=== PATIENT | female | born 1980 | race Caucasian/White ===

== ENCOUNTER 2017-02-16 23:01 | Emergency (ER) | payer OTHER ==
[~2017-02-16] VITALS: Ht 165.1 cm; Wt 66.8 kg
[~2017-02-16 23:01] MED LIST: FLUO40CA8 PO; HYDR-3983 PO; INSPMPNVLG; LORA-741 PO
[2017-02-16 23:19] VITALS: TEMP 37; Ht 165.1 cm; Wt 66.8 kg
[2017-02-16] MEDS ORDERED: SODIUM CHLORIDE 0.9% 1000ML 1,000 ML IV STA (23:28)
[2017-02-17 00:02] LABS: URINE APPEARANCE CLEAR (CLEAR); URINE BILIRUBIN NEG (NEG); URINE COLOR YELLOW; URINE NITRITE NEG (NEG); URINE PH 6.5 (4.5-7.5); URINE SPECIFIC GRAVITY 1.024 (1.000-1.030); UROBILINOGEN NEG (NEG); ZZUR CULT IF INDIC CLEAN CATCH NO
[2017-02-17 00:03] LABS: BASO % 0.9 %; BASO ABS # 0.06 K/uL (0-0.2); COMPLETE YES; EOS % 1.3 %; HEMATOCRIT 40.2 % (37-47); LYMPH % 28.1 %; MEAN CELL VOLUME 85.4 fL (80-100); MEAN CORPUSCULAR HEMOGLOBIN 28.7 pg (25-34); MEAN CORPUSCULAR HGB CONC 33.6 g/dl (32-36); MEAN PLATELET VOLUME 9.5 fL (7.4-10.4); MONO % 8.1 %; NEUT % 61.6 %; PLATELET COUNT 323 K/uL (130-400); RED BLOOD COUNT 4.71 M/uL (4.2-5.4); WHITE BLOOD COUNT 6.75 K/uL (4.8-10.8)
[2017-02-17 00:06] LABS: MANUAL MICROSCOPIC REQUIRED? NO; REVIEW REQ? NO
[2017-02-17 00:24] LABS: PREG INTERNAL NEGATIVE QC NEG CLEAR BACKGROUND; PREG INTERNAL POSITIVE QC POS CONTROL LINE
[2017-02-17 00:34] LABS: BLOOD UREA NITROGEN 20 mg/dl (7-18); BUN/CREATININE RATIO 16.3 (10-20); CALCIUM 9.4 mg/dl (8.5-10.1); CARBON DIOXIDE 29 mmol/L (21-32); CHLORIDE 99 mmol/L (98-107); GLUCOSE 509 mg/dl (70-99); POTASSIUM 3.9 mmol/L (3.5-5.1); SODIUM 135 mmol/L (136-145)
[2017-02-17 00:50] LABS: BETA-HYDROXYBUTYRATE 1.85 mg/dL (0.2-2.81)
[2017-02-17] MEDS ORDERED: NovoLIN-R INSULIN PER UNIT CHARGE IV STA (00:51)
[2017-02-17 02:23] VITALS: BP 116/68; PULSE 88; O2SAT 98
--- NOTE | 2017-02-17 06:11 | EMERGENCY ROOM VISIT NOTE ---
History First contact with patient: 23:06 Chief Complaint: HYPERGLYCEMIA Stated Complaint: BLOOD SUGAR OVER 600 Nursing Triage Summary: [facility] [place] since 1700 History of Present Illness The patient is a 36 year old female who presents to the Emergency Room with complaints of hyperglycemia today. Blood sugars were greater than 600 per patient. Patient states 6 years ago her insulin pump malfunctioned and had a similar episode. Patient is a type I diabetic. Normally her blood sugars are well-controlled. She has an appointment on Sunday with endocrinology. Patient changed out her tubing and insulin with no real improvement of her blood sugar. Patient with the polydipsia and polyuria. Patient denies chest pain, dyspnea, cough, congestion, fever, chills, nausea, vomiting, diarrhea, urinary dysuria. Patient states she does not feel sick. Review of Systems See HPI for pertinent positives & negatives. A total of 10 systems reviewed and were otherwise negative. Past Medical/Surgical History Medical Problems: (1) Diabetes (2) MRSA (methicillin resistant Staphylococcus aureus) (3) MRSA cellulitis Social History Smoking Status: Never Smoker Drug Use: none Marital Status: Housing Status: lives with significant other Occupation Status: employed Current/Historical Medications Scheduled Insulin Aspart (novoLOG INSULIN PUMP ), 1 EA N/A UD Allergies Coded Allergies: Cefaclor (Verified Allergy, Intermediate, RASH, 02/16/17) Cephalexin (Verified Allergy, Mild, HEADACHE, STOMACH PAIN, 02/16/17) Gluten (Verified Allergy, Unknown, HISTORY OF CELIAC'S, 02/16/17) Morphine (Verified Adverse Reaction, Mild, HEAD ACHES, 02/16/17) Physical Exam Vital Signs Date Time Temp Pulse Resp B/P Pulse Ox O2 Delivery O2 Flow Rate FiO2 02/17/17 02:23 88 18 116/68 98 Room Air 02/17/17 01:13 80 18 110/56 95 Room Air 02/16/17 23:19 37.0 107 18 125/92 99 Room Air Pain Rating (0-10): 1.0 Physical Exam VITALS: Vitals are noted on the nurse's note and reviewed by myself. Vital signs stable. GENERAL: Pleasant female, in no acute distress, nondiaphoretic, well-developed well-nourished. SKIN: The skin was without rashes, erythema, edema, or bruising. There is no tenting of the skin. Capillary reflex less than 2 seconds. HEAD: Normocephalic atraumatic. EARS: External auditory canals clear, tympanic membranes pearly fajardo without erythema or effusion bilaterally. EYES: Pupils equal round and reactive to light and accommodation. Conjunctivae without injection, sclerae without icterus. Extraocular movements intact. NOSE: Patent, turbinates without inflammation or discharge. MOUTH: Mucous membranes mildly dry. Pharynx without erythema or exudate. Uvula midline. Airway patent. Tongue does not deviate. NECK: Supple without nuchal rigidity. No lymphadenopathy. No thyromegaly. Cervical spine is nontender. No JVD. HEART: Regular rate and rhythm without murmurs gallops or rubs. LUNGS: Clear to auscultation bilaterally without wheezes, rales or rhonchi. No dullness to percussion. No retractions or accessory muscle use. ABDOMEN: Positive bowel sounds x 4. Normal tympanic percussion. Soft, nontender, without masses or organomegaly. Wong sign negative. No guarding or rebound tenderness. MUSCULOSKELETAL: No muscle atrophy, erythema, or edema noted. NEURO: Patient was alert and oriented to person place and time. Normal sensation to light and sharp touch. No focal neurological deficits. Medical Decision & Procedures Laboratory Results 02/16/17 23:40 Red Blood Count 4.71, Mean Corpuscular Volume 85.4, Mean Corpuscular Hemoglobin 28.7, Mean Corpuscular Hemoglobin Concent 33.6, Mean Platelet Volume 9.5, Neutrophils (%) (Auto) 61.6, Lymphocytes (%) (Auto) 28.1, Monocytes (%) (Auto) 8.1, Eosinophils (%) (Auto) 1.3, Basophils (%) (Auto) 0.9, Neutrophils # (Auto) 4.15, Lymphocytes # (Auto) 1.90, Monocytes # (Auto) 0.55, Eosinophils # (Auto) 0.09, Basophils # (Auto) 0.06 02/16/17 23:40 Test 02/16/17 23:40 02/17/17 02:08 White Blood Count 6.75 K/uL (4.8-10.8) Red Blood Count 4.71 M/uL (4.2-5.4) Hemoglobin 13.5 g/dL (12.0-16.0) Hematocrit 40.2 % (37-47) Mean Corpuscular Volume 85.4 fL (80-100) Mean Corpuscular Hemoglobin 28.7 pg (25-34) Mean Corpuscular Hemoglobin Concent 33.6 g/dl (32-36) Platelet Count 323 K/uL (130-400) Mean Platelet Volume 9.5 fL (7.4-10.4) Neutrophils (%) (Auto) 61.6 % Lymphocytes (%) (Auto) 28.1 % Monocytes (%) (Auto) 8.1 % Eosinophils (%) (Auto) 1.3 % Basophils (%) (Auto) 0.9 % Neutrophils # (Auto) 4.15 K/uL (1.4-6.5) Lymphocytes # (Auto) 1.90 K/uL (1.2-3.4) Monocytes # (Auto) 0.55 K/uL (0.11-0.59) Eosinophils # (Auto) 0.09 K/uL (0-0.5) Basophils # (Auto) 0.06 K/uL (0-0.2) RDW Standard Deviation 42.5 fL (36.4-46.3) RDW Coefficient of Variation 13.7 % (11.5-14.5) Immature Granulocyte % (Auto) 0.0 % Immature Granulocyte # (Auto) 0.00 K/uL (0.00-0.02) Urine Color YELLOW Urine Appearance CLEAR (CLEAR) Urine pH 6.5 (4.5-7.5) Urine Specific [place] 1.024 (1.000-1.030) Urine Protein NEG (NEG) Urine Glucose (UA) 3+ (NEG) Urine Ketones TRACE (NEG) Urine Occult Blood NEG (NEG) Urine Nitrite NEG (NEG) Urine Bilirubin NEG (NEG) Urine Urobilinogen NEG (NEG) Urine Leukocyte Esterase NEG (NEG) Anion Gap 7.0 mmol/L (3-11) Est Creatinine Clear Calc Drug Dose 59.4 ml/min Estimated GFR () 68.3 Estimated GFR (Non- 58.9 BUN/Creatinine Ratio 16.3 (10-20) Calcium Level 9.4 mg/dl (8.5-10.1) Troponin I < 0.015 ng/ml (0-0.045) Beta-Hydroxybutyric Acid 1.85 mg/dL (0.2-2.81) Human Chorionic Gonadotropin, Qual NEG (NEG) Bedside Glucose 130 mg/dl (70-90) Medications Administered Medications (Trade) Dose Ordered Sig/Ellie Route Start Time Stop Time Status Last Admin Dose Admin Sodium Chloride (Nss 1000ml) 1,000 ml @ 999 mls/hr Q1H1M STAT IV 02/16/17 23:28 02/17/17 00:28 DC 02/16/17 23:50 999 MLS/HR Insulin Human Regular (novoLIN-R U-100 PER UNIT) 10 units NOW STAT IV 02/17/17 00:51 02/17/17 00:52 DC 02/17/17 01:11 10 UNITS ED Course Prior records/ancillary studies reviewed and summarized above. Nursing notes reviewed. The patient's history was concerning for either glycemia. Differential diagnosis: Etiologies such as metabolic, infection, hypo/hyperglycemia, electrolyte abnormalities, cardiac sources, intracerebral event, toxicologic, neurologic, as well as others were entertained. Physical examination: As above. ER treatment provided: IV Lock IV fluids, insulin On reassessment the patient felt better. Diagnostics interpretation by me: ECG: Normal sinus, normal intervals, no acute ST-T wave changes. Impression normal sinus rhythm interpreted by myself The labs revealed hyperglycemia without DKA Negative urine, repeat blood sugar was improved Exam and history seem consistent with hyperglycemia without DKA. Blood sugars did improve. Patient was out of insulin needles and was given some. She is advised to keep her pump off and to follow-up as scheduled with endocrinology on Sunday for auditing of the insulin pump to see that is malfunctioning again. She is advised to notify her and coke drawer hand Sunday about her ER visit. By the evaluation outlined above emergent etiologies such as infection, cardiac sources, intracerebral event, toxologic, neurologic, metabolic, as well as others were deemed relatively unlikely. The pt informed about the findings as listed above. All questions were answered and pleased with the treatment. Return instructions were outlined and the patient was discharged in stable condition. Case reviewed with my attending Referral: The patient was referred back to coke drawer hand and primary care physician for follow-up in 2 to 3 days for a recheck of the current condition. Medical Decision As above Impression Primary Impression: Hyperglycemia due to type 1 diabetes mellitus Departure Information Dispostion Home / Self-Care Condition GOOD Forms WORK / SCHOOL INSTRUCTIONS, HOME CARE DOCUMENTATION FORM, IMPORTANT VISIT INFORMATION Patient Instructions Hyperglycemia, My [facility] Additional Instructions Monitor your blood sugar. Use your insulin as directed. Turn off your insulin pump and use the insulin needles. Bring your insulin pump to your endocrinology appointment for further investigation to see if it is working properly. Ibuprofen(Motrin, Advil) may be used for fever or pain. Use 600mg every six hours as needed. Take with food. Avoid using more than 2400mg in a 24 hour period. Do not use 2400mg per day for more than three consecutive days without physician direction. Prolonged inappropriate use can lead to stomach upset or ulcers. (AND/OR) Acetaminophen(Tylenol) may be used for fever or pain. Use 1000mg every six hours as needed. Avoid using more than 4000mg in a 24 hour period. Rest and drink plenty of fluids as tolerated. Continue current medications. Return to the ER immediately for worsening or persistent high blood sugars, abdominal pain, vomiting, fevers, chest pains, difficulty breathing, worsening of your condition, or as needed. Follow up with your coke drawer hand as scheduled in 2-3 days for a recheck of your current condition.
[2017-08-30] MEDS ORDERED: [UNRECOGNIZED DRUG - CODE] NAE (15:08)
[2017-08-30] MEDS ORDERED: BCPILLS PO (15:08)
[2017-08-30] MEDS ORDERED: MULT-506 PO (15:08)
[2017-09-17] MEDS ORDERED: OXYC-57 PO (07:50)
== END 2017-02-17 02:26 | disposition home or self-care (01) ==
LOC: C.EDB 23:02
DX: E10.65 Type 1 diabetes mellitus with hyperglycemia (principal); Z96.41 Presence of insulin pump (external) (internal)

== ENCOUNTER → 2017-06-11 | Outpatient (CLI) | payer OTHER ==
[~2017-06-11] MED LIST changes: -FLUO40CA8 PO; -HYDR-3983 PO; -LORA-741 PO
--- NOTE | 2017-06-11 18:51 | DIAGNOSTIC IMAGING REPORT ---
LEFT FOOT 3 VIEWS CLINICAL HISTORY: Left lateral foot injury. FINDINGS: 3 views of the left foot are obtained. No prior studies are available for comparison at the time of dictation. The skeletal structures are well mineralized. No fracture is seen. The joint spaces are well-maintained. The overlying soft tissues are within normal limits. IMPRESSION: Unremarkable radiographic assessment of the left foot. Electronically signed by: Jason Dickson M.D. 06/11/2017 6:49 PM Dictated Date/Time: 06/11/2017 6:48 PM
== END | disposition home or self-care (01) ==
LOC: C.RAD 18:05
PROVIDERS: ATTEND Internal Medicine
DX: S99.922A Unspecified injury of left foot, initial encounter (principal); X58.XXXA Exposure to other specified factors, initial encounter

== ENCOUNTER → 2017-08-30 | Outpatient (CLI) | payer OTHER ==
[~2017-08-30] MED LIST changes: +BCPILLS PO; +MULT-506 PO; +[UNRECOGNIZED DRUG - CODE] NAE
[2017-08-30 16:21] LABS: CREATININE RANDOM URINE 86.7 mg/dl
[2017-08-30 16:22] LABS: ALT/SGPT 20 U/L (12-78); AST/SGOT 15 U/L (15-37); BLOOD UREA NITROGEN 9 mg/dl (7-18); BUN/CREATININE RATIO 10.2 (10-20); CALCIUM 8.5 mg/dl (8.5-10.1); CARBON DIOXIDE 28 mmol/L (21-32); CHLORIDE 104 mmol/L (98-107); CHOLESTEROL 186 mg/dl (0-200); CREATININE 0.87 mg/dl (0.60-1.20); GLUCOSE 176 mg/dl (70-99); POTASSIUM 4.1 mmol/L (3.5-5.1); SODIUM 137 mmol/L (136-145)
[2017-08-30 16:32] LABS: ALB/GLOB RATIO 0.8 (0.9-2); ALKALINE PHOSPHATASE 57 U/L (45-117); CHOLESTEROL/HDL RATIO 3.1; HDL CHOLESTEROL 60 mg/dl; LDL CHOLESTEROL CALCULATED 106 mg/dl; RATIO 5.8 mcg/mg (0-30.0); TRIGLYCERIDES 98 mg/dl (0-150); VERY LOW DENSITY LIPOPROT CALC 20 mg/dl
[2017-08-31 07:03] LABS: ESTIMATED AVERAGE GLUCOSE 206 mg/dl; HA1C FLAG Normal (Normal)
== END | disposition home or self-care (01) ==
LOC: C.LAB1850 15:35
PROVIDERS: ATTEND Nurse Practitioner Family
DX: E10.65 Type 1 diabetes mellitus with hyperglycemia (principal)

== ENCOUNTER → 2018-01-10 | Outpatient (CLI) | payer OTHER ==
[~2018-01-10] MED LIST changes: -BCPILLS PO; +OXYC-57 PO
[2018-01-10 10:23] LABS: HEMOGLOBIN A1C 8.3 % (4.5-5.6)
== END | disposition home or self-care (01) ==
LOC: C.LAB1850 09:19
PROVIDERS: ATTEND Nurse Practitioner Family
DX: E10.65 Type 1 diabetes mellitus with hyperglycemia (principal); E55.9 Vitamin D deficiency, unspecified; E05.90 Thyrotoxicosis, unspecified without thyrotoxic crisis or storm